=== PATIENT | female | born 1995 | race African-American/Black ===

== ENCOUNTER 2017-02-01 17:57 | Emergency (ER) | payer MEDICAID, OTHER ==
[~2017-02-01] VITALS: Ht 180.3 cm; Wt 80.0 kg
[~2017-02-01 17:57] MED LIST: LEVOTHYROXIN
[2017-02-01] MEDS ORDERED: SODIUM CHLORIDE 0.9% 1,000 ML IV ONE (19:51)
[2017-02-01] MEDS ORDERED: KETOROLAC 30MG/ML VIAL IV STA (19:51)
[2017-02-01] MEDS ORDERED: HYDROCODONE/ACETAMINOPHEN 5/325MG TABLET PO ONE (20:00)
[2017-02-01 21:01] LABS: HCG SCREEN NEGATIVE
[2017-02-02 00:46] VITALS: BP 128/70
== END 2017-02-02 00:47 | disposition home or self-care (01) ==
LOC: ER 18:30
DX: M25.551 Pain in right hip (principal); M25.552 Pain in left hip; M54.2 Cervicalgia; M79.601 Pain in right arm; M25.561 Pain in right knee; E89.0 Postprocedural hypothyroidism; Z88.0 Allergy status to penicillin; V43.52XA Car driver injured in collision with other type car in traffic accident, initial encounter; Y93.89 Activity, other specified; Y99.8 Other external cause status; Y92.410 Unspecified street and highway as the place of occurrence of the external cause; Z90.89 Acquired absence of other organs
CPT/HCPCS: 70450; 70486; 72125; 73030; 73521; 73560; 84703; 96361; 96374; 99285; J1885; J7030; Z7610; L0172

== ENCOUNTER 2018-02-08 00:19 | Emergency (ER) | payer OTHER ==
[~2018-02-08] VITALS: Ht 177.8 cm; Wt 85.0 kg
[2018-02-08] MEDS ORDERED: DIPHENHYDRAMINE 50MG CAPSULE PO ONE (02:45)
[2018-02-08] MEDS ORDERED: PREDNISONE 20MG TABLET PO ONE (02:45)
[2018-02-08] MEDS ORDERED: IBUPROFEN 600MG TABLET PO ONE (02:45)
[2018-02-08 02:50] VITALS: BP 135/73
== END 2018-02-08 05:30 | disposition home or self-care (01) ==
LOC: ER 00:19
DX: L50.9 Urticaria, unspecified (principal); Z88.0 Allergy status to penicillin; Z98.890 Other specified postprocedural states
CPT/HCPCS: 93005; 99284; J7512; Q0163

== ENCOUNTER 2019-10-03 02:51 | Emergency (ER) | payer MEDICAID, OTHER ==
[~2019-10-03] VITALS: Ht 180.3 cm; Wt 90.0 kg
[2019-10-03] MEDS ORDERED: KETOROLAC 30MG/ML VIAL IM ONE (03:15)
[2019-10-03] MEDS ORDERED: ACETAMINOPHEN 500MG TABLET PO ONE (03:30)
[2019-10-03 03:39] LABS: BASOPHILS % 0.4 % (0.0-2.0); EOSINOPHILS % 1.7 % (0.0-5.0); HEMATOCRIT. 32.2 % (36.0-48.0); LYMPHOCYTES % 17.4 % (20.0-50.0); MEAN CORPUSCULAR HEMOGLOBIN 30.9 pg (28.0-32.0); MEAN CORPUSCULAR VOLUME 90.1 fL (81.0-99.0); MEAN PLATELET VOLUME 8.6 fl (7.4-10.4); MONOCYTES % 5.9 % (2.0-8.0); NEUTROPHILS % 74.6 % (40.0-76.0); PLATELET 199 x1000/uL (130-400); RED BLOOD CELL COUNT 3.57 mill/uL (4.2-5.4); RED CELL DISTRIBUTION WIDTH 13.1 % (11.6-14.6)
[2019-10-03 03:42] LABS: CHLORIDE 109 mEq/L (98-107)
[2019-10-03 03:53] LABS: B-HCG QUANTITATIVE 411 mIU/mL (<3)
[2019-10-03 04:51] VITALS: BP 137/76
== END 2019-10-03 04:54 | disposition home or self-care (01) ==
LOC: ER 02:51
DX: Z79.899 Other long term (current) drug therapy (principal); R10.9 Unspecified abdominal pain; N93.9 Abnormal uterine and vaginal bleeding, unspecified
CPT/HCPCS: 36415; 76801; 80053; 81025; 84702; 85025; 86850; 86900; 99284

== ENCOUNTER 2020-10-31 07:39 | Emergency (ER) | payer MEDICAID ==
[~2020-10-31] VITALS: Ht 162.6 cm; Wt 88.0 kg
[2020-10-31 07:48] VITALS: BP 154/94
[2020-10-31 09:02] LABS: BASOPHILS % 0.5 % (0.0-2.0); EOSINOPHILS % 2.9 % (0.0-5.0); HEMATOCRIT. 36.7 % (36.0-48.0); HEMOGLOBIN. 12.7 g/dL (12.0-16.0); LYMPHOCYTES % 28.3 % (20.0-50.0); MEAN CORPUSCULAR HEMOGLOBIN 30.2 pg (28.0-32.0); MEAN CORPUSCULAR VOLUME 87.2 fL (81.0-99.0); MEAN PLATELET VOLUME 8.3 fl (7.4-10.4); MONOCYTES % 9.2 % (2.0-8.0); NEUTROPHILS % 59.1 % (40.0-76.0); PLATELET 254 x1000/uL (130-400); RED BLOOD CELL COUNT 4.21 mill/uL (4.2-5.4); RED CELL DISTRIBUTION WIDTH 12.1 % (11.6-14.6)
[2020-10-31 09:08] LABS: CHLORIDE 106 mEq/L (98-107)
[2020-10-31 09:27] LABS: *AMPHETAMINES SCREEN URINE NEGATIVE (NEGATIVE); *BARBITURATES SCREEN URINE NEGATIVE (NEGATIVE); *BENZODIAZEPINES SCREEN URINE NEGATIVE (NEGATIVE); *COCAINE SCREEN URINE NEGATIVE (NEGATIVE); METHADONE URINE SCREEN NEGATIVE (NEGATIVE); OPIATES URINE SCREEN NEGATIVE (NEGATIVE); PHENCYCLIDINE URINE SCREEN NEGATIVE (NEGATIVE)
[2020-10-31 09:28] LABS: CANNABINOID URINE SCREEN NEGATIVE (NEGATIVE)
[2020-10-31] MEDS ORDERED: IBUP-2029 MT (10:46)
[2020-10-31] MEDS ORDERED: ACETAMINOPHEN 325MG TABLET PO NR (11:00)
== END 2020-10-31 11:09 | disposition home or self-care (01) ==
LOC: ER 07:39
DX: R07.89 Other chest pain (principal); E05.90 Thyrotoxicosis, unspecified without thyrotoxic crisis or storm
CPT/HCPCS: 36415; 71045; 80053; 80305; 81025; 85025; 85379; 99284

== ENCOUNTER 2022-07-29 21:00 | Emergency (ER) | payer MEDICAID, OTHER ==
[~2022-07-29] VITALS: Ht 180.3 cm; Wt 107.0 kg
[~2022-07-29 21:00] MED LIST changes: +IBUP-2029 MT
[2022-07-29 21:11] VITALS: BP 126/81
[2022-07-29] MEDS ORDERED: OFLO5DRO3 LEFTEYE (23:19)
== END 2022-07-29 23:28 | disposition home or self-care (01) ==
LOC: ER 21:00
DX: H57.12 Ocular pain, left eye (principal); H10.9 Unspecified conjunctivitis; E03.9 Hypothyroidism, unspecified
CPT/HCPCS: 81025; 99282